=== PATIENT | male | born 1965 | race Caucasian/White ===

== ENCOUNTER 2019-11-04 22:04 | Outpatient (REF) | payer BC, SELFPAY | END 2019-11-04 22:24 | LOC: LBN 22:04 | PROVIDERS: PCP Emergency Medicine; Visit Provider Nurse Practitioner | DX: R30.0 Dysuria (principal) | CPT/HCPCS: 87086 ==

== ENCOUNTER 2019-11-05 08:54 | Outpatient (CLI) | payer BC, SELFPAY ==
[2019-11-05 12:12] LABS: CREATININE 0.89 mg/dL (0.70-1.30); Calculated LDL 146 mg/dL; Cholesterol 209 mg/dL (<200); HDL Cholesterol 47 mg/dL (40-60); Potassium 4.4 mmol/L (3.5-5.1); Triglyceride 82 mg/dL (<150)
[2019-11-05 13:05] LABS: Hemoglobin A1C 5.9 % (3.8-5.6)
== END 2019-11-05 09:14 ==
PROVIDERS: Nurse Practitioner; PCP Emergency Medicine; Visit Provider Emergency Medicine
DX: I10 Essential (primary) hypertension (principal); E78.5 Hyperlipidemia, unspecified; Z13.1 Encounter for screening for diabetes mellitus
CPT/HCPCS: 80061; 82565; 83036; 84132

== ENCOUNTER 2019-11-08 00:53 | Outpatient (CLI) | payer BC, SELFPAY ==
--- NOTE | 2019-11-08 13:34 | DI.US_ITS ---
EXAM: US RENAL CLINICAL HISTORY: right flank pain R10.9 ABDOMINAL PAIN TECHNIQUE: Ultrasound performed using standard protocol. COMPARISON: No exams were available for comparison FINDINGS: Kidneys are normal in size and shape and there is no evidence of hydronephrosis nephrolithiasis or re nal mass. Urinary bladder grossly unremarkable, 91 cc volume, the patient was unable to void. Prost atic volume estimated at 17 cc. IMPRESSION: Negative renal ultrasound
== END 2019-11-08 01:13 ==
PROVIDERS: PCP Emergency Medicine; Visit Provider Nurse Practitioner
DX: R10.31 Right lower quadrant pain (principal)
CPT/HCPCS: 76770

== ENCOUNTER 2020-07-15 11:09 | Outpatient (REF) | payer BC, SELFPAY ==
[2020-07-14 21:19] LABS: Anion Gap 11.2 mmol/L (3-11); BUN 15 mg/dL (7-18); CO2 24.8 mmol/L (21.0-32.0); CREATININE 0.99 mg/dL (0.70-1.30); Calcium 9.2 mg/dL (8.5-10.1); Chloride 103 mmol/L (98-107); Glucose 90 mg/dL (74-106); Potassium 4.3 mmol/L (3.5-5.1); Sodium 139 mmol/L (136-145)
[2020-07-17 10:05] LABS: PSA, Screening 0.3 ng/mL (0.0-3.5)
== END 2020-07-15 11:29 ==
LOC: LBN 11:09
PROVIDERS: PCP Emergency Medicine; Visit Provider Emergency Medicine
DX: Z00.00 Encounter for general adult medical examination without abnormal findings (principal); I10 Essential (primary) hypertension; Z12.5 Encounter for screening for malignant neoplasm of prostate
CPT/HCPCS: 80048; 84153

== ENCOUNTER 2022-11-15 11:26 | Day surgery (SDC) | payer BC, SELFPAY ==
--- NOTE | 2022-11-15 07:22 | W.PM.OP ---
Date of service: 11/15/22 Time of Service: 14:00 Operative Note Operative Note DATE OF PROCEDURE: 11/15/22 PRE-OP DIAGNOSIS: Right middle finger trigger finger POST-OP DIAGNOSIS: same PROCEDURE: Right middle finger trigger release, CPT #82628 SURGEON: Greg Dalton ANESTHESIA TYPE: Local By Surgeon Refer to Anesthesia Record ESTIMATED BLOOD LOSS: 3 TOURNIQUET TIME: 0 COMPLICATIONS: None Patient was transported to: PACU Patient's condition: stable Indications: Please see complete medical record for details. Procedure Description: In the operating room, local anesthesia was induced. The patient was positioned supine on the stretcher table. All bony prominences were well-padded. Preoperative antibiotics were administered. The right hand was prepped and draped in the usual sterile fashion. The correct patient, procedure, and side of the procedure were all verified prior to incision. And oblique small incision was made using the distal palmar crease fairly centered over the long finger A1 mimi. Sharp incision through the skin followed by careful spreading and retraction to expose the A1 mimi. A knife was used to incise the mimi while protecting the flexor tendons below. Small snap was used to complete and confirm release proximally and distally. The tendons were then able to be readily delivered up through the wound. Flexion extension of the digit had no triggering locking or catching. There was some moderate fraying of the flexor tendons over the more bulbous area of prior triggering. The wound was copiously irrigated normal saline. Hemostasis readily achieved. Skin closed 3-0 nylon horizontal mattress. Xeroform applied followed by gauze and secured with 2 inch Cosmo bandage. The patient awoke from anesthesia without complication and was transferred to the recovery room in a stable condition.
[2022-11-15 11:56] VITALS: BP 126/98; PULSE 69; RESP 16; TEMP 36.4; O2SAT 98
[2022-11-15] MEDS: Lactated Ringers 1,000 ML 30 ML IV (12:35)
[2022-11-15] MEDS: ceFAZolin 3,000 MG in Normal Saline 100 ML 200 MG IVPB (13:51)
[2022-11-15] MEDS: Lidocaine 1% Pres-Free W/EPI 1/200,000 10 ML VIAL (13:55)
[2022-11-15] MEDS: Sodium Bicarbonate 50 MEQ/50 ML VIAL (13:55)
[2022-11-15 14:24] VITALS: BP 134/81; PULSE 71; RESP 16; TEMP 36.5; O2SAT 100
--- NOTE | 2022-11-15 14:31 | W.PM.DSUDISC ---
Date of service: 11/15/22 Time of Service: 15:00 Discharge Plan Disposition Patient Disposition: Home Discharge Details Attending Provider: Greg Dalton Primary Care Provider: Akin Sánchez Home Meds and New Rx's Prescriptions: New naproxen 250 mg tablet 250 - 500 mg PO BID PRNQty: 30 0RF Rx Instructions: take with a meal oxycodone 5 mg tablet 5 - 10 mg PO Q4H MDD 30 mg PRN (Reason: moderate to severe pain) Qty: 9 0RF Continued sildenafil [Viagra] 100 mg tablet 100 mg PO PRN Qty: 10 6RF hydrochlorothiazide 25 mg tablet 25 mg PO DAILY Qty: 90 0RF amlodipine 5 mg tablet 5 mg PO DAILY Qty: 90 3RF pravastatin 20 mg tablet 20 mg PO DAILY Qty: 90 3RF lisinopril 30 mg tablet 30 mg PO DAILY Qty: 14 0RF Discontinued ibuprofen 800 mg tablet 800 mg PO TID PRN (Reason: pain) Qty: 60 1RF Discharge Instructions Additional Instructions: Surgery: Right middle finger trigger release Activity: Gently increase use of right hand. Recommend avoiding strenuous or repetitive gripping activities for few weeks. Prescriptions: Naproxen 250 mg take 1-2 every 12 hours with a meal as needed for moderate pain Oxycodone 5 mg take 1-2 every 4-6 hours as needed for severe pain You may use [id number]-tuwsnqs Tylenol (acetaminophen) as needed for mild pain. These pain medications may be taken all at once or in different combinations as needed. You may try ggic-[id number] diphenhydramine (Benadryl) 25-50 mg nightly as a sleep aid Dressings: Leave dressing in place for 3 days. May then remove and leave open to air or cover incision with Band-Aid. May get wet after 5 days. Follow-up: 10-[address] Dalton You may take off the leg compression stockings this evening at home. You may also leave them on a few days longer if you have a history of leg swelling or edema. Let us know right away if you develop any redness, drainage, fevers, chest pain, or trouble breathing. Do not drink alcohol or drive for at least 24 hours after anesthesia. Please call the office during business hours with any questions or concerns. Discharge Orders Discharge Orders: Discharge Order (Routine); Ordered 11/15/22 Ordered By: Greg Dalton DS: Diagnosis Discharge Diagnosis (1) Trigger finger, right middle finger: Status: Acute
== END 2022-11-15 15:05 | disposition home or self-care (01) ==
PROVIDERS: PCP Nurse Practitioner Family; Visit Provider Student in an Organized Health Care Education/Training Program
PROC: (CPT 26055; principal; 2022-11-15 13:30)
DX: M65.331 Trigger finger, right middle finger (principal)
CPT/HCPCS: 26055; J0690

== ENCOUNTER 2022-12-05 14:50 | Outpatient (CLI) | payer BC, SELFPAY ==
--- NOTE | 2022-12-05 14:15 | DI.RAD_ITS ---
Exam(s) XR WRIST LT COMPLETE EXAM: XR WRIST LT COMPLETE CLINICAL HISTORY: left wrist discomfort. TECHNIQUE: 2D digital imaging was performed. COMPARISON: No exams were available for comparison FINDINGS: 3 views No evidence of fracture or dislocation. Mild negative ulnar variance. Mild narrowing noted at the a rticulation between the distal scaphoid and trapezoid. Other articulations appear unremarkable. No osseous lesions. No IMPRESSION: As above. DATA REPOSITORY: RADIATION DOSE DELIVERED:
== END 2022-12-05 14:51 | disposition home or self-care (01) ==
LOC: DIORS 14:50
PROVIDERS: PCP Nurse Practitioner Family; Referring Provider Nurse Practitioner Family; Visit Provider Physician Assistant
DX: M25.532 Pain in left wrist (principal); R93.89 Abnormal findings on diagnostic imaging of other specified body structures
CPT/HCPCS: 73110

== ENCOUNTER 2023-01-15 13:26 | Outpatient (CLI) | payer BC, SELFPAY ==
--- NOTE | 2023-01-15 12:50 | DI.RAD_ITS ---
Exam(s) XR HIP PELVIS ADULT BL EXAM: XR HIP PELVIS ADULT BL CLINICAL HISTORY: Acute LT HIP pain/no trauma,? BURSITIS,CHRONIC RT HIP PAIN, M25.551,M25.552. TECHNIQUE: 2D digital imaging was performed of the pelvis and bilateral hips. Four images were obta ined. AP pelvis and lateral views of both hips were obtained. COMPARISON: No exams were available for comparison FINDINGS: BONES: No acute fracture is present. No bony destructive lesion is seen. JOINTS: No dislocation present. Degenerative changes are seen in the right hip with moderate joint sp jessee narrowing and periarticular spurring involving the acetabulum and the femoral head. There is mil d narrowing of the left hip joint space. Moderate degenerative changes are seen in the lower lumbar spine with disc space narrowing and endplate osteophytes. The sacroiliac joints and symphysis pubis are unremarkable. SOFT TISSUE: Normal. IMPRESSION: Degenerative changes of the hips, right greater than left. DATA REPOSITORY: RADIATION DOSE DELIVERED:
== END 2023-01-15 13:46 ==
LOC: DI 13:27
PROVIDERS: PCP Nurse Practitioner Family; Visit Provider Nurse Practitioner Family
DX: M25.551 Pain in right hip (principal); M25.552 Pain in left hip; M16.0 Bilateral primary osteoarthritis of hip; G89.29 Other chronic pain
CPT/HCPCS: 73521

== ENCOUNTER 2023-01-20 03:39 | Outpatient (CLI) | payer BC, SELFPAY ==
[2023-01-20 12:36] LABS: CREATININE 0.9 mg/dL (0.70-1.30); Calculated LDL 99 mg/dL (<100); Cholesterol 179 mg/dL (<200); Estimated GFR 99.62 (mL/min/1.73m2); HDL Cholesterol 47 mg/dL (40-60); Potassium 4.3 mmol/L (3.5-5.1); Triglyceride 165 mg/dL (<150)
[2023-01-20 12:38] LABS: Hemoglobin A1C 6.4 % (<5.7)
== END 2023-01-20 03:40 | disposition home or self-care (01) ==
LOC: LOS 03:39
PROVIDERS: PCP Nurse Practitioner Family; Visit Provider Nurse Practitioner Family
DX: I10 Essential (primary) hypertension (principal); E78.5 Hyperlipidemia, unspecified; Z13.1 Encounter for screening for diabetes mellitus
CPT/HCPCS: 36415; 80061; 82565; 83036; 84132

== ENCOUNTER 2024-07-02 19:02 | Outpatient (REF) | payer BC, SELFPAY ==
[2024-07-02 22:23] LABS: Total Iron Binding Capacity 294 ug/dL (250-450)
[2024-07-02 22:24] LABS: HCT 43.7 % (40.0-50.0); HGB 15.1 g/dL (13.5-17.5); MCH 30.9 pg (27.0-33.0); MCHC 34.6 % (32.0-36.0); MCV 89 fL (80-95); MPV 10.4 fL (8.0-11.0); RBC 4.89 10^6/uL (4.36-5.78); RDW 12.3 % (11.8-14.1); RDW-SD 40.4 fL; WBC 10.01 10^3/uL (4.4-10.8)
[2024-07-02 22:54] LABS: Absolute Neutrophil Count 6.21 10^3/uL (1.2-6.7); Atypical Lymphocytes % 3 %; Bands % 1 %; Diff Comment Manual Differential; Platelet Count 285 10^3/uL (130-400); RBC Morphology Normal
[2024-07-02 23:16] LABS: ALT 53 U/L (16-63); AST 24 U/L (15-37); Albumin 3.7 g/dL (3.4-5.0); Alkaline Phosphatase 49 U/L (46-116); Anion Gap 12.8 mmol/L (3-11); BUN 20 mg/dL (7-18); Bilirubin, Total 0.48 mg/dL (0.2-1.0); CO2 27.2 mmol/L (21.0-32.0); Calcium 8.7 mg/dL (8.5-10.1); Chloride 94 mmol/L (98-107); Estimated GFR 87.24 (mL/min/1.73m2); Ferritin 516 ng/mL (26-388); Glucose 118 mg/dL (74-106); Potassium 3.8 mmol/L (3.5-5.1); Sodium 134 mmol/L (136-145); Total Protein 7.9 g/dL (6.4-8.2)
[2024-07-03 09:24] LABS: Lab Add On Test DONE
[2024-07-03 09:45] LABS: TSH 1.53 uIU/Ml (0.36-3.74)
[2024-07-05 12:43] LABS: Lyme Ab w Rflx to Lyme Confirm Negative (Negative)
[2024-07-06 14:43] LABS: Anaplasma phagocytophilum Negative (Negative); B. miyamotoi PCR Negative (Negative); Babesia divergens/MO-1 Negative (Negative); Babesia duncani Negative (Negative); Babesia microti Negative (Negative); Ehrlichia chaffeensis Negative (Negative); Ehrlichia ewingii/canis Negative (Negative); Ehrlichia muris eauclairensis Negative (Negative)
== END 2024-07-02 19:03 | disposition home or self-care (01) ==
LOC: LBN 19:02
PROVIDERS: PCP Nurse Practitioner Family; Visit Provider Nurse Practitioner Family
DX: R53.83 Other fatigue (principal); B34.9 Viral infection, unspecified
CPT/HCPCS: 80053; 87798; 82728; 83550; 84443; 85025; 86618

== ENCOUNTER 2025-01-04 15:45 | Outpatient (CLI) | payer BC, SELFPAY ==
--- NOTE | 2025-01-04 14:15 | DI.RAD_ITS ---
Exam(s) XR SHOULDER LT COMPLETE 2+V EXAM: XR SHOULDER LT COMPLETE 2+V CLINICAL HISTORY: BILATERAL SHOULDER. TECHNIQUE: 2D digital imaging was performed of the left shoulder. Two images were obtained. Two Gr ashey and axillary views were obtained. COMPARISON: No exams were available for comparison FINDINGS: BONES: No acute fracture is present. No bony destructive lesion is seen. JOINTS: No dislocation present. There is marked osteoarthritis of the glenohumeral joint with loss of the joint space with bone on bone. There osteophytes seen, with the largest at the inferior aspect of the humeral head. There is also mild flattening of the articular surfaces at the glenohumeral saumya nt. Subchondral sclerosis is also present. There are mild degenerative changes seen at the acromioc lavicular joint. SOFT TISSUE: Normal. IMPRESSION: Marked osteoarthritis of the glenohumeral joint. DATA REPOSITORY: RADIATION DOSE DELIVERED:
--- NOTE | 2025-01-04 14:15 | DI.RAD_ITS ---
Exam(s) XR SHOULDER RT COMPLETE 2+V EXAM: XR SHOULDER RT COMPLETE 2+V CLINICAL HISTORY: BILATERAL SHOULDER PAIN. TECHNIQUE: 2D digital imaging was performed of the right shoulder. Two images were obtained. Axill may and Grashey views were obtained. COMPARISON: There are no priors for comparison. FINDINGS: BONES: No acute fracture is present. No bony destructive lesion is seen. JOINTS: No dislocation present. There is loss of the glenohumeral joint with [id number]-lv-[id number]. Osteophyt es are seen at the inferior aspect of the humeral head. There is subchondral sclerosis. Mild osteoa rthritic changes are seen at the acromioclavicular joint. SOFT TISSUE: Normal. IMPRESSION: Marked osteoarthritis of the glenohumeral joint. DATA REPOSITORY: RADIATION DOSE DELIVERED:
== END 2025-01-04 15:46 | disposition home or self-care (01) ==
LOC: DIORS 15:45
PROVIDERS: PCP Nurse Practitioner Family; Visit Provider Student in an Organized Health Care Education/Training Program
DX: M19.011 Primary osteoarthritis, right shoulder (principal); M19.012 Primary osteoarthritis, left shoulder
CPT/HCPCS: 73030

== ENCOUNTER 2025-02-09 12:54 | Outpatient (CLI) | payer BC, SELFPAY ==
[2025-02-09 16:13] LABS: Hemoglobin A1C 6.5 % (<5.7)
[2025-02-09 16:36] LABS: Calculated LDL 113 mg/dL (<100); Cholesterol 201 mg/dL (<200); HDL Cholesterol 51 mg/dL (>or=40); Triglyceride 186 mg/dL (<150)
[2025-02-10 19:16] LABS: PSA, Screening 0.5 ng/mL (<=3.5)
[2025-02-18 11:16] LABS: Testosterone, Total 216 ng/dL (240-950)
== END 2025-02-09 12:55 | disposition home or self-care (01) ==
LOC: LBO 02-10 12:55
PROVIDERS: Nurse Practitioner Gerontology; PCP Nurse Practitioner Family; Visit Provider Nurse Practitioner Family
DX: Z13.220 Encounter for screening for lipoid disorders (principal); Z13.1 Encounter for screening for diabetes mellitus; N52.9 Male erectile dysfunction, unspecified
CPT/HCPCS: 36415; 80061; 84153; 84403; 83036